=== PATIENT | male | born 1945 | race Caucasian/White ===

== ENCOUNTER → 2017-12-09 | Day surgery (SDC) | payer OTHER ==
[2017-12-06 14:56] VITALS: BMI 42.0
[~2017-12-09] VITALS: Ht 170.2 cm; Wt 122.7 kg
[~2017-12-09] MED LIST: ATV/1 PO; BUSP15TA70 PO; CARV25TA2 PO; CLB/200 PO; DICLOFEN GEL TOP; HYOS1TAB PO; LIDOCAINE HCL 2% 2 ML VIAL (20MG/ML) ONE; LOSA1TAB38 PO; MIDAZOLAM HCL 1 MG/ML 2ML VIAL ONE; PROPOFOL IV EMULSION 10 MG/ML 20 ML VIAL ONE; RANI150T85 PO; SIMV20TA2 PO
[2017-12-09 12:30] VITALS: Ht 170.2 cm; Wt 122.7 kg
--- NOTE | 2017-12-09 13:04 | Endo History and Physical ---
History & Physical Date of Service: Dec 09, 2017. Chief Complaint: HISTORY OF POLYPS Referring Physician: DR RODRIGUEZ History of Present Illness For colonoscopy Past Surgical History Hx Internal Defibrillator: No Hx Pacemaker: No Hx Abdominal Surgery: No Hx of Implantable Prosthesis: No Hx Post-Op Nausea and Vomiting: No Hx Cancer Surgery: No Hx Thoracic Surgery: No Hx Orthopedic: Yes (ORIF COLLARBONE AGE 15) Hx Urinary Tract Surgery: No Social History Smoking Status: Never Smoker Hx Substance Use: No Hx Alcohol Use: No Allergies Coded Allergies: No Known Allergies (Unverified , 12/09/17) Current Medications Reported Home Medications Medications Dose Route/Sig Max Daily Dose Days Date Category [Diclofen Gel] 1 Dose TOP PRN 12/06/17 Reported Levsin (Hyoscyamine Sulfate) 0.125 Mg Tab 0.125 Mg PO DAILY PRN 02/18/16 Reported Ativan (Lorazepam) 1 Mg Tab 1 Mg PO HS PRN 02/18/16 Reported Zantac (Ranitidine HCl) 150 Mg Tab 150 Mg PO HS 02/18/16 Reported CeleBREX (Celecoxib) 200 Mg Cap 200 Mg PO QAM 02/18/16 Reported Zocor (Simvastatin) 20 Mg Tab 20 Mg PO HS 02/18/16 Reported Buspar (Buspirone Hcl) 15 Mg Tab 5 Mg PO BID PRN 02/18/16 Reported Cozaar (Losartan Potassium) 100 Mg Tab 100 Mg PO QAM 02/18/16 Reported Coreg (Carvedilol) 25 Mg Tab 25 Mg PO BID 02/18/16 Reported Vital Signs Weight (Kilograms): 122.73 Height (Feet): 5 Height (Inches): 7 Date Time Temp Pulse Resp B/P (MAP) Pulse Ox O2 Delivery O2 Flow Rate FiO2 12/09/17 12:37 36.5 68 16 130/85 (100) 96 Room Air Physical Exam General Appearance: + obese Respiratory/Chest: Respiratory effort: no dyspnea Cardiovascular: Heart Auscultation: RRR Abdomen: Inspection & Palpation: soft Assessment and Plan Hx polyps for colonoscopy
--- NOTE | 2017-12-09 13:53 | Discharge Instructions ---
Endoscopy Patient Instructions Date / Procedure(s) Performed Dec 09, 2017. Colonoscopy Allergy Information Coded Allergies: No Known Allergies (Unverified , 12/09/17) Discharge Date / Findings Dec 09, 2017. Diverticulosis, hemorrhoids Medication Instructions Stopped Medication(s): CELEBREX Restart Stopped Medication(s): resume meds Reported Home Medications Medications Dose Route/Sig Max Daily Dose Days Date Category [Diclofen Gel] 1 Dose TOP PRN 12/06/17 Reported Levsin (Hyoscyamine Sulfate) 0.125 Mg Tab 0.125 Mg PO DAILY PRN 02/18/16 Reported Ativan (Lorazepam) 1 Mg Tab 1 Mg PO HS PRN 02/18/16 Reported Zantac (Ranitidine HCl) 150 Mg Tab 150 Mg PO HS 02/18/16 Reported CeleBREX (Celecoxib) 200 Mg Cap 200 Mg PO QAM 02/18/16 Reported Zocor (Simvastatin) 20 Mg Tab 20 Mg PO HS 02/18/16 Reported Buspar (Buspirone Hcl) 15 Mg Tab 5 Mg PO BID PRN 02/18/16 Reported Cozaar (Losartan Potassium) 100 Mg Tab 100 Mg PO QAM 02/18/16 Reported Coreg (Carvedilol) 25 Mg Tab 25 Mg PO BID 02/18/16 Reported Provider Instructions Activity Restrictions - No exercising or heavy lifting for 24 hours. - Do not drink alcohol the day of the procedure. - Do not drive a car or operate machinery until the day after the procedure. - Do not make any important decisions or sign important papers in 24 hours after the procedure. Following Day: - Return to full activity which may include returning to work/school. Diet Start your diet with liquids and light foods (jello, soup, juice, toast). Then eat your usual diet if not nauseated. Treatment For Common After Affects For mild abdominal pain, bloating, or excessive gas: - Rest - Eat lightly - Lie on right side Follow-Up Information Follow-up with DR RODRIGUEZ as scheduled Anesthesia Information What You Should Know You have had a procedure that required some medicine to reduce anxiety and discomfort. This treatment is called moderate sedation. After receiving the treatment, you may be sleepy, but you will be able to breathe on your own. The effects of the treatment may last for several hours. Follow these instructions along with Activity/Diet recommendations noted above: * Do NOT do anything where dizziness or clumsiness would be dangerous. * Rest quietly at home today, then you can be up and about tomorrow. * Have a responsible person stay with you the rest of today. * You may have had an I.V. today. If so, you may take the dressing off later today. Recommendations Call your doctor if: * Trouble breathing * Continuous vomiting for more than 24 hours * Temperature above 101 degrees * Severe abdominal pain or bloating * Pain not relieved by pain medicine ordered * There is increased drainage or redness from any incision * A large amount of rectal bleeding greater than 2-3 tablespoons. (If you had a polyp/s removed or have hemorrhoids, a small amount of blood - from the rectum is to be expected.) * You have any unanswered questions or concerns. IN THE EVENT OF A SERIOUS EMERGENCY, GO TO THE NEAREST EMERGENCY ROOM Your discharge instructions were prepared by provider Walt Flynn. Patient Instructions Signature Page Junior Culver Patient (or Guardian) Signature/Date: I have read and understand the instructions given to me by my caregivers. Caregiver/RN/Doctor Signature/Date: The above-named patient and/or guardian has received patient instructions on this date. + Original Patient Signature Page (only) stays with chart. Please make copy for patient.
--- NOTE | 2017-12-09 13:56 | GI REPORT ---
Patient Name: Junior Culver Procedure Date: 12/09/2017 1:26 PM Date of : 1945 Admit Type: Outpatient Age: 71 Gender: Male Attending MD: Walt Flynn MD Procedure: Colonoscopy Providers: Walt Flynn MD Referring MD: Eileen Aden Indications: Personal history of colonic polyps Medicines: Midazolam 2 mg IV, Propofol total dose 110 mg IV, Lidocaine 40 mg IV Complications: No immediate complications. Estimated Blood Loss: Estimated blood loss: none. Procedure: Pre-Anesthesia Assessment: - Prior to the procedure, a History and Physical was performed, and patient medications, allergies and sensitivities were reviewed. The patient's tolerance of previous anesthesia was reviewed. - The risks and benefits of the procedure and the sedation options and risks were discussed with the patient. All questions were answered and informed consent was obtained. After I obtained informed consent, the scope was passed under direct vision. Throughout the procedure, the patient's blood pressure, pulse, and oxygen saturations were monitored continuously. The scope was introduced through the anus and advanced to the cecum, identified by appendiceal orifice and ileocecal valve. The colonoscopy was performed without difficulty. The patient tolerated the procedure well. The quality of the bowel preparation was good. Findings: Multiple diverticula were found in the sigmoid colon. Non-bleeding internal hemorrhoids were found during endoscopy. The hemorrhoids were mild. Impression: - Diverticulosis in the sigmoid colon. - Non-bleeding internal hemorrhoids. - No specimens collected. Recommendation: - Discharge patient to home (ambulatory). - Continue present medications. - Repeat colonoscopy in 5 years for surveillance. - Return to primary care physician [facility]. Walt Flynn M.D. Walt Flynn MD 12/09/2017 1:55:48 PM This report has been signed electronically. Note Initiated On: 12/09/2017 1:26 PM Number of Addenda: 0 I attest to the content of the Intraoperative Record and orders documented therein, exceptions below {[id number]}
--- NOTE | 2017-12-09 14:21 | Anesthesiology Progress Note ---
Anesthesia Post Op Note Date & Time Dec 09, 2017 at 14:21 Vital Signs Pain Intensity: 0 Vital Signs Past 12 Hours Date Time Temp Pulse Resp B/P (MAP) Pulse Ox O2 Delivery O2 Flow Rate FiO2 12/09/17 14:11 67 16 133/70 (91) 96 Room Air 12/09/17 13:56 69 13 117/63 (81) 95 Room Air 12/09/17 12:37 36.5 68 16 130/85 (100) 96 Room Air Notes Mental Status: alert / awake / arousable, participated in evaluation Pt Amnestic to Procedure: Yes Nausea / Vomiting: adequately controlled Pain: adequately controlled Airway Patency, RR, SpO2: stable & adequate BP & HR: stable & adequate Hydration State: stable & adequate Anesthetic Complications: no major complications apparent
[2017-12-09 14:26] VITALS: BP 131/77; PULSE 64; O2SAT 96
== END | disposition home or self-care (01) ==
LOC: C.GI 12:17
PROVIDERS: ATTEND Internal Medicine Gastroenterology
DX: Z86.010 Personal history of colon polyps (principal); K57.30 Diverticulosis of large intestine without perforation or abscess without bleeding; K64.8 Other hemorrhoids; Z79.899 Other long term (current) drug therapy

== ENCOUNTER 2023-03-23 08:25 | Observation (INO) ==
--- NOTE | 2023-02-19 13:44 | PAT Medication Instructions ---
Medication Instructions Date of Service February 19, 2023 Home Medications Medication Instructions Recorded cyclobenzaprine 10 mg tablet 10 mg PO TID PRN muscle spasm #10 10/16/21 tabs carvedilol 25 mg tablet 25 mg PO BID simvastatin 10 mg tablet 10 mg PO HS terazosin 1 mg capsule 1 mg PO HS cyclobenzaprine 10 mg tablet 10 mg PO TID PRN apixaban 5 mg tablet (Eliquis) 5 mg PO BID empagliflozin 10 mg tablet (Jardiance) 10 mg PO QAM famotidine 40 mg tablet 40 mg PO HS losartan 100 mg tablet 100 mg PO HS dicyclomine 20 mg tablet 20 mg PO BID PRN psyllium husk 0.4 gram capsule 0.4 g PO DAILY PRN STOP 3 days before surgery empagliflozin 10 mg tablet (Jardiance) 10 mg PO QAM ASK your prescriber and surgeon apixaban 5 mg tablet (Eliquis) 5 mg PO BID DO NOT take the morning of surgery dicyclomine 20 mg tablet 20 mg PO BID PRN psyllium husk 0.4 gram capsule 0.4 g PO DAILY PRN Take morning of surgery With a small sip of water, OTHERWISE NOTHING TO EAT OR DRINK AFTER MIDNIGHT: carvedilol 25 mg tablet 25 mg PO BID cyclobenzaprine 10 mg tablet 10 mg PO TID PRN(if needed) Take evening before surgery carvedilol 25 mg tablet 25 mg PO BID simvastatin 10 mg tablet 10 mg PO HS terazosin 1 mg capsule 1 mg PO HS cyclobenzaprine 10 mg tablet 10 mg PO TID PRN(if needed) famotidine 40 mg tablet 40 mg PO HS losartan 100 mg tablet 100 mg PO HS dicyclomine 20 mg tablet 20 mg PO BID PRN(if needed) Other Notes If you have any questions please call us at [phone] or [phone] or [phone] or [phone]
--- NOTE | 2023-02-24 12:08 | Anesthesiology Consultation ---
Date of Service February 24, 2023 Assessment & Plan (1) Encounter for pre-operative examination: - will request most recent [facility] Cardiology office note, Val Allen. - check BSG am DOS. - awaiting labs completed at [facility] in [place] 02/23/23 including needed labs other than coags and type and screen per surgeon, patient and . They state will return for testing if needed once results are received and reviewed from [facility]. - Outpatient joint assessment: Patient is currently scheduled for inpatient pathway. If re-evaluated and patient/surgeon requests outpatient pathway, patient is not recommended candidate for outpatient joint program from anesthesia standpoint. Chart Review Chart Review: Pending: Refer to Additional Notes / Consult section and Patient seen in Pre Admission Testing Teaching & Discussion Pre-Anesthesia Teaching/Discussion Notes: Instructed NPO after midnight before surgery, except medications with 15 cc of water. Medication instructions provided according to the PAT guidelines. History Surgery Operation Date: 03/23/23 07:00 Proposed Procedures p Right Total Shoulder Arthroplasty Reverse - Aaron Lisandra Gutierrez MD Height/Weight Height: 5 ft 7 in Weight: 123.6 kg Allergies Allergy/AdvReac Type Severity Reaction Status Date / Time metformin AdvReac Intermediate CAUSED IBS Verified 02/12/23 12:18 Medications Home Medications Medication Instructions Recorded Confirmed Last Taken carvedilol 25 mg tablet 25 mg PO BID 11/30/18 02/12/23 01/28/23 05:00 simvastatin 10 mg tablet 10 mg PO 11/30/18 02/12/23 01/25/23 22:00 terazosin 1 mg capsule 1 mg PO 11/30/18 02/12/23 01/25/23 22:00 cyclobenzaprine 10 mg tablet 10 mg PO TID PRN muscle spasm #10 10/16/21 02/12/23 Unknown tabs apixaban 5 mg tablet (Eliquis) 5 mg PO BID 01/14/23 02/12/23 01/25/23 09:00 empagliflozin 10 mg tablet 10 mg PO QAM 01/14/23 02/12/23 01/25/23 09:00 (Jardiance) famotidine 40 mg tablet 40 mg PO HS 01/14/23 02/12/23 01/25/23 22:00 losartan 100 mg tablet 100 mg PO 01/14/23 02/12/23 01/25/23 22:00 dicyclomine 20 mg tablet 20 mg PO BID PRN ibs 01/20/23 02/12/23 Unknown psyllium husk 0.4 gram capsule 0.4 g PO DAILY PRN Constipation 01/20/23 02/12/23 Unknown Past Medical History Medical History (Updated 02/24/23 @ 12:16 by Jodi Perla PA-C) Atrial fibrillation on eliquis--follows P[facility] BPH (benign prostatic hyperplasia) GERD (gastroesophageal reflux disease) controlled, stable per pt Hyperlipidemia Hypertension controlled, stable per pt IBS (irritable bowel syndrome) Morbid obesity with BMI of 40.0-44.9, adult On anticoagulant therapy eliquis daily Prediabetes on jardiance Sleep apnea CPAP-compliant Patient denies h/o stroke, seizures, heart attack, heart failure, blood clots/DVTs or blood transfusions. Exercise / Class Metabolic Activity III < 4 Walking/Shop/Light housework (denies chest discomfort or shortness of breath with usual activities, lives in one floor home) Past Family History Family History Other Family history non-contributory No family history of adverse response to anesthesia Past Surgical History Surgical History History of bilateral cataract extraction History of colonoscopy History of surgery collar bone fx repair--hardware removed History of tooth extraction partial upper/lower dentures Status post cystoscopy with ureteral stent placement 01/28/23 @ [facility] Past Anesthesia History No Hx of Anesthesia Complications and No Family Hx of Anesthesia Complications History of PONV No Hx of PONV and Hx of Motion Sickness Social History Smoking Status: Former smoker Do You Dip or Chew Tobacco: No Smoking End Date: years ago Hx Alcohol Use: No Hx Substance Use: No substance use type: does not use Review of Systems Patient denies chest pain, shortness of breath, dyspnea on exertion, fever, chills, cough, wheezing, or palpitations. Physical Exam Vital Signs Vitals BP 132/82 P 73 TEMP 99.1 SP02 99.1% on RA RESP 18 Physical Patient resting comfortably in chair in no acute distress, alert and oriented, responding appropriately throughout visit Full cervical extension range of motion without pain TMD < 3 finger breadths Mallampati Score 3, small oral opening Dentition: partial upper and lower dentures, denies chipped or loose teeth, caps/crowns, implants or bridges Lungs: normal respiratory effort. Good air movement, clear throughout to auscultation, no adventitious breath sounds Cardiac: regular rate and rhythm, no murmurs noted Carotid arteries: negative bruit bilat Lab Results Anesthesia Preop Results Results Anesthesia Widget: WBC 10.67 K/ul (4.8-10.8) 01/15/23 Hgb 11.9 g/dl (14.0-18.0) L 01/15/23 Hct 36.6 % (42.0-52.0) L 01/15/23 Plt 183 K/uL (130-400) 01/15/23 Na 136 mmol/L (136-145) 01/15/23 K 3.8 mmol/L (3.5-5.1) 01/15/23 Cl 105 mmol/L (98-107) 01/15/23 CO2 23 mmol/L (21-32) 01/15/23 BUN 18 mg/dl (6-23) 01/15/23 Creat 1.04 mg/dl (0.6-1.4) 01/15/23 Glucose Level 135 mg/dl (70-99(Fasting)) H 01/15/23 POC Glucose 128 mg/dl (70-99) H 01/28/23 PT 11.7 Seconds (9.0-12.0) 02/24/23 PTT 30.9 Seconds (21.0-31.0) 02/24/23 INR 1.1 (0.9-1.1) 02/24/23 Urine Color Yellow 01/14/23 Urine Appearance Cloudy (Clear) A 01/14/23 Urine pH 5.0 (4.5-7.5) 01/14/23 Urine Specific [place] 1.023 (1.000-1.030) 01/14/23 Urine Protein Negative (Negative) 01/14/23 Urine Glucose (UA) 3+ (Negative) H 01/14/23 Urine Ketones 1+ (Negative) H 01/14/23 Urine Blood 3+ (Negative) H 01/14/23 Urine Nitrite Positive (Negative) A 01/14/23 Urine Bilirubin Negative (Negative) 01/14/23 Urine Urobilinogen Negative (Negative) 01/14/23 Urine Leukocyte Esterase 1+ (Negative) H 01/14/23 Urine WBC (Auto) >30 /hpf (0-5) H 01/14/23 Urine RBC (Auto) >30 /hpf (0-4) H 01/14/23 Urine Hyaline Casts (Auto) 1-5 /lpf (0-5) 01/14/23 Urine Epithelial Cells (Auto) 0-5 /lpf (0-5) 01/14/23 Urine Bacteria (Auto) 4+ (Negative) H 01/14/23 SARS-CoV-2, RNA, NAAT NEGATIVE (NEGATIVE) 01/14/23 Blood Type O Negative 02/24/23 Antibody Screen NEGATIVE 02/24/23 Testing Electrocardiogram Date: 01/14/23 NSR, rate 89 bpm Chest X-Ray Date: 01/25/23 No acute process
[~2023-03-23 08:25] MED LIST changes: +ACETAMINOPHEN 500 MG TAB PO SCH; -ATV/1 PO; +BUPIVACAINE 0.5 % 5 MG/1 ML PF 10ML VIAL ONE; -BUSP15TA70 PO; -CARV25TA2 PO; -CLB/200 PO; +CeleBREX 200 MG CAP PO SCH; +DEXAMETHASONE SOD INJ 4 MG/ML VIAL ONE; -DICLOFEN GEL TOP; -HYOS1TAB PO; -LIDOCAINE HCL 2% 2 ML VIAL (20MG/ML) ONE; -LOSA1TAB38 PO; +LR 15ML/HR IV SCH; +LR 60ML/HR IV SCH; +ONDANSETRON INJ 2 MG/ML 2 ML VIAL ONE; +PROPOFOL IV EMULSION 10 MG/ML 20 ML VIAL IV ONE; -PROPOFOL IV EMULSION 10 MG/ML 20 ML VIAL ONE; -RANI150T85 PO; +ROCURONIUM BROMIDE 10 MG/ML 5 ML VIAL IV ONE; +ROPIVACAINE 0.5% HCL/PF 150 MG, BUPIVACAINE 0.75% MPF 20 ML, EPINEPHrine 0.15 MG, Ketor... INFIL SCH; -SIMV20TA2 PO; +SUGAMMADEX SODIUM 200 MG/2 ML VIAL IV ONE; +Scopolamine 1 MG TDSY TD SCH; +TRANEXAMIC ACID 1,000 MG **IV Intra-op IV SCH; +TRANEXAMIC ACID 1,000 MG **IV Pre-op IV SCH; +fentaNYL citrate PF 100 MCG/2 ML VIAL ONE
[2023-03-23] MEDS ORDERED: BUPIVACAINE 0.5 % 5 MG/1 ML MPF 30ML VIAL ONE (09:45)
[2023-03-23] MEDS ORDERED: LIDOCAINE 1%/EPINEPHRINE 1:100,000 20 ML VIAL ONE (09:46)
--- NOTE | 2023-03-23 09:49 | History & Physical Bridge Note ---
Date of Service March 23, 2023 History & Physical Bridge Note I have examined the patient, reviewed the History & Physical and in the interval since the performance of the History & Physical I have noted the following changes of clinical significance: no changes noted
[2023-03-23] MEDS ORDERED: fentaNYL citrate PF 100 MCG/2 ML VIAL IV PRN (10:41)
[2023-03-23] MEDS ORDERED: ePHEDrine sulfate 50 MG/ML AMP IV PRN (10:41)
[2023-03-23] MEDS ORDERED: ONDANSETRON INJ 2 MG/ML 2 ML VIAL IV PRN ×2 (10:41→14:14)
[2023-03-23] MEDS ORDERED: ATROPINE SULFATE 0.1 MG/ML 10ML SYR IV PRN (10:41)
[2023-03-23] MEDS ORDERED: SUCCINYLCHOLINE CHLORIDE 20 MG/ML 10 ML VIAL IV ONE (11:31)
[2023-03-23] MEDS ORDERED: ROCURONIUM BROMIDE 10 MG/ML 5 ML VIAL IV ONE ×2 (11:31→13:20)
[2023-03-23] MEDS ORDERED: GLYCOPYRROLATE 0.2 MG/ML VIAL ONE (11:39)
[2023-03-23] MEDS ORDERED: SUGAMMADEX SODIUM 200 MG/2 ML VIAL IV ONE (13:12)
--- NOTE | 2023-03-23 13:55 | Post Operative Brief Note ---
Immediate Post Op Note v1 Date of Surgery March 23, 2023 Pre & Post Diagnosis Operation Date: 03/23/23 10:10 Pre-Op Diagnosis: Right shoulder Rotator cuff arthropathy Post-Op Diagnosis: Right shoulder Rotator cuff arthropathy I identified the patient and participated in the time-out.: Yes Procedure Operation Date: 03/23/23 10:10 Actual Procedures p Right Reverse Total Shoulder Arthroplasty(Right) - Aaron Gutierrez MD Surgeon Aaron Gutierrez MD Affiliate Marketing Specialist DAVID Isaacs PA-C (No fellow avail) Estimated Blood Loss 175 Findings Consistent with Post-Op Diagnosis Fluids 700 cc Specimens Right shoulder contents Anesthesia Type General Regional Complications none
--- NOTE | 2023-03-23 13:56 | Operative Report ---
Post Operative Report Pre & Post Diagnosis Operation Date: 03/23/23 10:10 Pre-Op Diagnosis: Right shoulder Rotator cuff arthropathy Post-Op Diagnosis: Right shoulder Rotator cuff arthropathy I identified the patient and participated in the time-out.: Yes Procedure Operation Date: 03/23/23 10:10 Actual Procedures p Right Reverse Total Shoulder Arthroplasty(Right) - Aaron Guiterrez MD Surgeon Aaron Gutierrez MD Supervisor [employer] DAVID Isaacs PA-C (No fellow avail) Estimated Blood Loss 175 Findings See Below Shoulder ROM Pre-op: FF 120 deg; Abd 140 deg; ER 5 deg; IR 50 deg Massive retracted rotator cuff with acetabulization of the humeral head. Humeral head was had loss of articular cartilage of humeral head. LHB was torn and no longer within the groove. Shoulder ROM Post-op: FF 150 deg; Abd 150 deg; ER 15 deg; IR 70 deg Fluids 700 cc Specimens Right shoulder contents Anesthesia Type General Regional Complications none Indications Patient is a 77-year-old male who developed right shoulder rotator cuff arthropathy with pain and decreased mobility. I recommended that she undergo a right shoulder Reverse TSA. The patient understands the risks of the operation including bleeding, infection, re-operation, damage to nerves and arteries, continued shoulder pain, shoulder stiffness, infection, and/or loosening of the components which may require additional surgery. The patient also understands the risks of heart attack, stroke, pulmonary embolus, and . The patient wished to proceed and the consent form was signed. Description of Procedure IMPLANTS: Arthrex 1) Humeral Stem 12 Univers Reverse Stem, with size 36 Right Offset Suture Cup at 135. 2) Humeral Liner 36, + 3 mm. 3) Glenoid Modular Baseplate 24 mm +4 Lateralized & Central Screw 10 x 25 mm. 4) Glenosphere 36/24 mm + 4 Lateralized. 5) Glenoid Locking screw 5.5 x 40 mm x 2. DAVID Isaacs PA-C is assisting with positioning, retracting, and closure due to fellow not available. PROCEDURE: The patient was taken to the Operating Room and placed in the beach-chair position after administration of an interscalene block and general anesthesia. 3 g of intravenous Ancef were administered. The right shoulder was then prepped and draped in the standard sterile fashion. Sequential compression devices were placed in the legs. The patient was identified and a multidisciplinary time-out identified the right shoulder as the correct shoulder and operative limb. First, the coracoid, acromion, clavicle, and planned deltopectoral incision were marked and then anesthetized with a 50:50 mixture of 1% lidocaine and 0.5% Marcaine with epinephrine. Sharp dissection was carried down to the deltopectoral interval. The cephalic vein was identified and protected laterally as was the deltoid. The deltopectoral interval was dissected to expose the clavipectoral fascia which was then incised. Blunt dissect was used to separate the deltoid from the humeral head as there was a massive rotator cuff tear. A self-retaining shoulder retractor was placed beneath the conjoined tendon and deltoid muscle, exposing the anterior capsule as the subscapularis tendon was torn. The superior 1cm of the Pec major was released. The biceps tendon was not identified in its groove and was torn, a small stump was located in the rotator interval. The remaining biceps tendon was unroofed and was split to the base of the coracoid and the biceps was released from the glenoid. Next, the humeral head was dislocated by adducting, extending, and externally rotation and the capsulotomy was carried down all the way around to the posterior aspect of the humeral head, taking care to stay on bone. Any humeral osteophytes anterior, inferiorly were removed with a rongeur to identify the medial calcar on the humeral neck. The humeral intramedullary entry point was entered posterior to the bicipital groove with a 2.4mm guide pin, followed by 6 mm drill, and then IM reamer. The resection guide was attached to the IM reamer and pinned to the humeral head with desired resection of 135. The IM reamer was removed and the humeral head was resected in the standard fashion. The resection protector was placed over the humeral surface. Our attention was drawn to the glenoid. The humerus was retracted and displaced posteriorly. The labrum was circumferentially removed as was the anterior capsule, which was carefully dissected free from the subscapularis tendon. The glenoid was exposed with 90 deg Lana/Derra retractor superiorly, Batman retractor anteriorly, and Mo retractor posteriorly. The glenoid was prepped with curettes to remove any remaining cartilage. Using the specific VIP patient specific glenoid aiming guide for a 24 mm baseplate was used to place the 2.8 mm guide wire. The glenoid surface was prepped for the baseplate with the glenoid reamers (peripheral and inferior offset). The modular central screw was prepped with cannulated 10 mm drill, then tapped to depth of 25 mm. The baseplate with central screw was screwed into place flush to the glenoid. The inferior screw hole was drilled first followed by the superior screw; locking screws were placed. The glenosphere was inserted onto the baseplate and locked into place in the standard fashion. The humerus was dislocated and humeral broaches 6 through 12 were sequentially placed in the humeral shaft until excellent fit. The A/P position of the broach was checked. The offset reamer guide was placed. The humeral cup reamer prepped the remainder of the humerus. The 12 stem was impacted into place with excellent purchase was achieved. The humeral trial liner 3 mm was placed. The shoulder was reduced with excellent fit and good stability of 1+ translation anteriorly and posteriorly. The shoulder ROM showed improved motion noted above. The definitive humeral liner was then placed. The ROM and stability was unchanged. The pulsatile lavage was used to copiously irrigate the wound throughout the case. The deltopectoral interval was re-approximated with #1-Vicryl, the subcutaneous tissue was closed with 3-0 Vircyl, and the skin was closed with ZipLine and Shield. The wounds were dressed with sterile gauze, and Tegaderm. The patient was then transferred to the PACU in stable condition after application of an abduction sling. POST-OP: The patient will be admitted for observation overnight. Patient will be seen by PT/OT prior to discharge. Pain medicine will be used as needed. The patient was placed in an abduction sling. I attest to the content of the Intraoperative Record and any orders documented therein. Any exceptions are noted below.
--- NOTE | 2023-03-23 14:13 | Operative Report ---
Post Operative Report Pre & Post Diagnosis Operation Date: 03/23/23 10:10 Pre-Op Diagnosis: Right shoulder rotator cuff arthropathy Post-Op Diagnosis: Right shoulder rotator cuff arthropathy I identified the patient and participated in the time-out.: Yes Procedure Operation Date: 03/23/23 10:10 Actual Procedures p Right Reverse Total Shoulder Arthroplasty(Right) - Aaron Gutierrez MD Surgeon Aaron Gutierrez MD Art History Instructor DAVID Isaacs PA-C (No fellow avail) Estimated Blood Loss 175 Findings Consistent with Post-Op Diagnosis Specimens Right shoulder bone and soft tissue Description of Procedure I was present during the entire case assisting with positioning, prepping, draping, wound retraction, wound closure, dressing and sling placement. No fellow present. Please see Dr. Gutierrez procedure note for specifics of the case. I attest to the content of the Intraoperative Record and any orders documented therein. Any exceptions are noted below.
[2023-03-23] MEDS ORDERED: PHARMACY GLYCEMIC MGMT CONSULT PRN (14:14)
[2023-03-23] MEDS ORDERED: diphenhydrAMINE 50 MG/ML VIAL IV PRN (14:14)
[2023-03-23] MEDS ORDERED: oxyCODONE HCL IR 5 MG TAB (IMMEDIATE RELEASE) PO PRN (14:14)
[2023-03-23] MEDS ORDERED: MAGNESIUM HYDROXIDE SUSP 30 ML UDC PO PRN (14:14)
[2023-03-23] MEDS ORDERED: METOCLOPRAMIDE HCL INJ 5 MG/ML 2 ML VIAL IV PRN (14:14)
[2023-03-23] MEDS ORDERED: TAMSULOSIN HCL 0.4 MG CAP PO PRN (14:14)
[2023-03-23] MEDS ORDERED: NALOXONE HCL 0.4 MG/1 ML VIAL/CARP IV PRN (14:14)
[2023-03-23] MEDS ORDERED: ALUMINUM/MAGNESIUM SUSP 30 ML UDC PO PRN (14:14)
[2023-03-23] MEDS ORDERED: HYDROmorphone INJ 0.5 MG/0.5 ML SYR IV PRN (14:14)
[2023-03-23] MEDS ORDERED: bisacodyL 10 MG SUPP PR PRN (14:14)
[2023-03-23] MEDS ORDERED: PSYLLIUM or GUAR GUM FIBER POWDER PACKET PO PRN (14:19)
[2023-03-23] MEDS ORDERED: CYCLOBENZAPRINE HCL 10 MG TAB PO PRN (14:19)
[2023-03-23] MEDS ORDERED: DICYCLOMINE HCL 20 MG TAB PO PRN (14:19)
--- NOTE | 2023-03-23 14:57 | Anesthesiology Progress Note ---
Date of Service March 23, 2023 Anesthesia Post Procedure Vital Signs Vital Signs: Temp Pulse Pulse Resp BP Pulse Ox O2 Del Method 03/23/23 14:45 80 18 143/85 H 95 Room Air 03/23/23 14:35 80 20 147/84 H 94 Room Air 03/23/23 14:25 83 20 146/82 H 94 Room Air 03/23/23 14:15 36.2 C L 83 20 109/74 96 Oxymask 03/23/23 09:02 36.6 C 72 18 157/90 H 98 Room Air O2 Flow Rate 03/23/23 14:45 03/23/23 14:35 03/23/23 14:25 03/23/23 14:15 4 03/23/23 09:02 Pain Intensity Right Shoulder: Pain Intensity: 5 Transfer of Care Handoff Completed per policy Notes Mental Status: alert / awake / arousable and participated in evaluation Patient Amnestic to Procedure: Yes Nausea / Vomiting: adequately controlled Pain: adequately controlled Airway Patency, RR, SpO2: stable & adequate BP & HR: stable & adequate Hydration State: stable & adequate Anesthetic Complications: no major complications apparent and Pt Satisfied with anesthetic care
--- NOTE | 2023-03-23 15:30 | XRay Report ---
XR shoulder RT min 2V routine CLINICAL HISTORY: Post shoulder surgery COMPARISON STUDY: Right shoulder 01/13/2022. FINDINGS: Status post reverse right total shoulder arthroplasty. The hardware appears intact. No frac ture or dislocation within the right shoulder. Moderate AC joint arthrosis again noted. IMPRESSION: Status post reverse right total shoulder arthroplasty. No evidence for hardware complica tion. ACT 112: Negative or not required by law. Electronically signed by: Abner Warner M.D. 03/23/2023 3:29 PM
--- NOTE | 2023-03-23 17:07 | Orthopedic Progress Note ---
Date of Service March 23, 2023 Assessment & Plan (1) Rotator cuff arthropathy of right shoulder: Plan: POD #0 s/p Reverse right TSA, doing as well as expected. Resume diet. No lifting more than coffee cup RUE. OOB to chair. Continue pain control. Check labs tomorrow. Abduction sling, neck strap can be release while sleeping and sitting. DVT prophylaxis: TEDs 3 weeks, foot pumps while in hospital, Resume Eliquis. PT/OT. Consider changing dressing to Silverlon before d/c. D/C planning. Present on Admission?: Yes Admission and Anticipated Discharge Date Admission Date: March 23, 2023 Physical Exam Physical Exam: RUE: 2+ radial pulse. Sensation to light touch intact distally, absent from neck to elbow. Motor: median, radial, Ulnar, AIN, PIN intact. Results & Data Vital Signs (Past 12 Hours) Vital Signs Temp Pulse Pulse Resp BP Pulse Ox O2 Del Method 03/23/23 16:43 36.6 C 86 17 103/65 95 Room Air 03/23/23 16:15 86 20 156/93 H 97 Nasal Cannula 03/23/23 16:00 81 16 151/94 H 97 Nasal Cannula 03/23/23 15:45 77 18 154/88 H 97 Nasal Cannula 03/23/23 15:30 79 16 128/88 94 Room Air 03/23/23 15:15 36.4 C L 79 16 133/81 94 Room Air 03/23/23 15:05 80 18 140/79 94 Room Air 03/23/23 14:55 79 16 137/78 95 Room Air 03/23/23 14:45 80 18 143/85 H 95 Room Air 03/23/23 14:35 80 20 147/84 H 94 Room Air 03/23/23 14:25 83 20 146/82 H 94 Room Air 03/23/23 14:15 36.2 C L 83 20 109/74 96 Oxymask 03/23/23 09:02 36.6 C 72 18 157/90 H 98 Room Air O2 Flow Rate 03/23/23 16:43 03/23/23 16:15 2 03/23/23 16:00 2 03/23/23 15:45 2 03/23/23 15:30 03/23/23 15:15 03/23/23 15:05 03/23/23 14:55 03/23/23 14:45 03/23/23 14:35 03/23/23 14:25 03/23/23 14:15 4 03/23/23 09:02 Diagnostic Findings Laboratory Results POC Glucose 118 mg/dl (70-99) H 03/23/23 09:00 Impressions Shoulder X-Ray 03/23/23 14:14 XR shoulder RT min 2V routine CLINICAL HISTORY: Post shoulder surgery COMPARISON STUDY: Right shoulder 01/13/2022. FINDINGS: Status post reverse right total shoulder arthroplasty. The hardware appears intact. No fracture or dislocation within the right shoulder. Moderate AC joint arthrosis again noted. IMPRESSION: Status post reverse right total shoulder arthroplasty. No evidence for hardware complication. ACT 112: Negative or not required by law. Electronically signed by: Abner Warner M.D. 03/23/2023 3:29 PM
[2023-03-23] MEDS: KETOROLAC TROMETHAMINE 15 MG/ML VIAL IV SCH ×2 (17:25→22:35)
[2023-03-23] MEDS: SODIUM CHLORIDE 0.9% 1,000 ML IV SCH (17:25)
[2023-03-23] MEDS: Scopolamine CHECK PATCH PLACEMENT SCH ×2 (17:25→23:05)
--- NOTE | 2023-03-23 17:29 | Hospitalist Consultation ---
Date of Consultation March 23, 2023 Assessment & Plan (1) Status post reverse arthroplasty of right shoulder: With Dr. Gutierrez on 03/23 Currently stable Patient declines CPAP while inpatient; reports he only uses it 3/7 days while at home Agree with a.m. CBC, BMP, creatinine, A1c; we will follow Perioperative antibiotics, pain control, DVT PPx, and IV fluids per the primary team (2) Atrial fibrillation: Rate controlled Agree with restarting Eliquis tomorrow morning on 03/24; will defer to primary team Continue carvedilol (3) Prediabetes: Continue to hold Jardiance while inpatient T2DM diet Check glucose with a.m. labs AM A1c Pharmacy consulted for glycemic control (4) GERD (gastroesophageal reflux disease): Continue famotidine (5) BPH (benign prostatic hyperplasia): Continues terazosin (6) Hyperlipidemia: Continue simvastatin (7) Hypertension: Continue carvedilol, restart losartan POD#1 Plan Agree with medical decision-making: MedSurZe[employer] Full code AHA, T2DM diet VTE PPx: SCDs, teds Thank you for allowing us to participate in the care of this patient, please reach out with any questions or concerns Supervising Physician Co-Signing Physician Notes I personally saw and examined the patient. I independently reviewed the labs, problem list, medication list, past medical history and family history. I verified all antony points and agree with Abner Temple PA-C with the following exceptions and/or additions: 77 year old male POD#0 right reverse total shoulder arthroplasty. EBL 175ml. Complications - none. Reports not yet urinated since operation. Usually has urinary frequency and BPH treated with terazosin. Also notes 5 minutes of epigastric pain. No history of GI bleed or ulcer. Currently on Celebrex and Toradol. O/E A&Ox3, HS RRR, no murmurs, Chest CTAB, Abdo SNT A/P Right reverse total shoulder arthroplasty - VTE/Pain/Bowel management per primary orthopedic team Gastritis - reports epigastric pain lasting 5 mins after his evening pills. No heartburn or history og GI bleed/ulcer. Orthopedics have both Celebrex and Toradol ordered. Pt on famotidine HS usually. Will add one dose of pantoprazole 40mg IV now and reassess tomorrow. May need to stop Toradol if any further epigastric pain. HTN - hold losartan until POD#1, continue carvedilol BPH - continue terazosin, monitor for urinary retention Paroxysmal atrial fibrillation - currently appears RRR. Anticoagulation to restart when ok from orthopedics perspective. History of Present Illness Reason for Consultation: Medical management Requesting Physician: Aaron Gutierrez MD Attending Physician: Aaron Gutierrez MD History of Present Illness Junior is a 77-year-old male with PMH of GERD, rotator cuff arthropathy of the right shoulder, atrial fibrillation, HLD, BPH, and HTN. He presented for a right reverse total shoulder arthroplasty with Dr. Aaron Gutierrez at 1010 on 03/23/2023. Per operative note, EBL was 175cc, general regional anesthesia was used, and there were no intraoperative complications. Per review of patient's vitals, patient has been mildly hypotensive postop; vitals otherwise stable. Patient reports she took carvedilol this morning, no other medications. He has not taken Eliquis or Jardiance since Monday 03/19 Patient has no R shoulder pain at time of consult (1800 on 03/23). He rates his right shoulder pain 9/10 at its worst (without pain medication). Patient reports he has been eating broth okay since being up. However, he notes that he has not urinated postop. Patient reports that he uses a CPAP 3/7 nights; he declines it while inpatient. ROS: Patient endorses sort throat, mild SOB, nausea. Patient denies fever, chills, sweating, MACHUCA, dizziness, lightheadedness, CP, abdominal pain, vomiting, saddle anesthesia, or numbness/tingling/pain/swelling in the legs. Allergies Allergy/AdvReac Type Severity Reaction Status Date / Time metformin AdvReac Intermediate CAUSED IBS Verified 03/23/23 09:10 Home Medications Medication Instructions Recorded Confirmed Type carvedilol 25 mg tablet 25 mg PO BID 11/30/18 03/23/23 History simvastatin 10 mg tablet 10 mg PO HS 11/30/18 03/23/23 History terazosin 1 mg capsule 1 mg PO HS 11/30/18 03/23/23 History cyclobenzaprine 10 mg tablet 10 mg PO TID PRN muscle spasm #10 10/16/21 03/23/23 Rx tabs apixaban 5 mg tablet (Eliquis) 5 mg PO BID 01/14/23 03/23/23 History empagliflozin 10 mg tablet 10 mg PO QAM 01/14/23 03/23/23 History (Jardiance) famotidine 40 mg tablet (Pepcid) 40 mg PO HS 01/14/23 03/23/23 History losartan 100 mg tablet 100 mg PO HS 01/14/23 03/23/23 History dicyclomine 20 mg tablet 20 mg PO BID PRN ibs 01/20/23 03/23/23 History psyllium husk 0.4 gram capsule 0.4 g PO DAILY PRN Constipation 01/20/23 03/23/23 History oxycodone 5 mg tablet 5 - 10 mg (1 - 2 x 5 mg) PO Q4H 03/24/23 Rx PRN pain #18 tabs Patient History Medical History (Updated 03/24/23 @ 10:02 by Ariadna Diggs PA-C) Rotator cuff arthropathy of right shoulder Morbid obesity with BMI of 40.0-44.9, adult On anticoagulant therapy eliquis daily IBS (irritable bowel syndrome) Sleep apnea CPAP-compliant BPH (benign prostatic hyperplasia) Hyperlipidemia GERD (gastroesophageal reflux disease) controlled, stable per pt Prediabetes on jardiance Atrial fibrillation on eliquis--follows PSH Hypertension controlled, stable per pt Surgical History (Updated 03/23/23 @ 17:28 by Abner Temple PA-C) History of surgery collar bone fx repair--hardware removed Status post cystoscopy with ureteral stent placement 01/28/23 @ [facility] History of tooth extraction partial upper/lower dentures History of bilateral cataract extraction History of colonoscopy Family History Other Family history non-contributory No family history of adverse response to anesthesia Social History Smoking Status: Former smoker Smoking End Date: years ago; Second Hand Exposure: No; Do You Dip or Chew Tobacco: No; Tobacco Cessation Education Requested by Patient: No Hx Alcohol Use: No Hx Substance Use: No Preferred Language: Armenian Communication Ability: Effective Plating Inspector Required: No Beliefs That Will Affect Care: None Current Living Situation: Spouse Feels Safe at Home: Yes Safety Concerns: Feels Safe At This Time Assistive Devices: CPAP, Denture - Upper, Denture - Lower, Glasses and Hearing Aid - Bilateral Review of Systems Review of Systems: See HPI above Physical Exam Physical Exam: General: no acute distress; non-toxic appearing; well-nourished; cooperative; 94% SPO2 on room air HEENT: normocephalic, atraumatic; no scleral icterus; PERRLA w/ EOMs intact; moist mucus membrane; vision and hearing grossly intact Neck: supple; no JVD; no lymphadenopathy; trachea midline Skin: warm, dry without signs of tenting; no cyanosis; no rashes, bruising, lesions, or erythema noted CV: chest wall NTP; RRR; S1/S2 normal; no murmurs/rubs/gallops; pulses intact and symmetric at radial, DP, and PT Lungs: no acute respiratory distress; symmetrical chest wall expansion; clear breath sounds across all lung norman w/o adventitious sounds; no wheezing ABD: Soft, NTP; BS present; no rebound/guarding; no ascites; no distention; negative CVA tenderness RUE: Sensation intact in the right fingers; +5/5 R fagot maker strength; patient demonstrates ability to wiggle fingers, bend right wrist, and bend right elbow; surgical site dressing borders without signs of drainage, infection, swelling, or erythema MSK: no tics or fasciculations; no edema noted in the LEs b/l (SCDs, teds); patient demonstrates ability to wiggle toes Neuro: A&Ox3; normal mood and affect; fluent speech; no focal deficits; sensation grossly intact in the UEs/LEs b/l Results & Data Results & Data Vital Signs (Past 12 Hours) Vital Signs Temp Pulse Pulse Resp BP Pulse Ox O2 Del Method 03/23/23 16:43 36.6 C 86 17 103/65 95 Room Air 03/23/23 16:15 86 20 156/93 H 97 Nasal Cannula 03/23/23 16:00 81 16 151/94 H 97 Nasal Cannula 03/23/23 15:45 77 18 154/88 H 97 Nasal Cannula 03/23/23 15:30 79 16 128/88 94 Room Air 03/23/23 15:15 36.4 C L 79 16 133/81 94 Room Air 03/23/23 15:05 80 18 140/79 94 Room Air 03/23/23 14:55 79 16 137/78 95 Room Air 03/23/23 14:45 80 18 143/85 H 95 Room Air 03/23/23 14:35 80 20 147/84 H 94 Room Air 03/23/23 14:25 83 20 146/82 H 94 Room Air 03/23/23 14:15 36.2 C L 83 20 109/74 96 Oxymask 03/23/23 09:02 36.6 C 72 18 157/90 H 98 Room Air O2 Flow Rate 03/23/23 16:43 03/23/23 16:15 2 03/23/23 16:00 2 03/23/23 15:45 2 03/23/23 15:30 03/23/23 15:15 03/23/23 15:05 03/23/23 14:55 03/23/23 14:45 03/23/23 14:35 03/23/23 14:25 03/23/23 14:15 4 03/23/23 09:02 Laboratory Results Abnormal lab results 03/23/23 Range/Units 09:00 POC Glucose 118 H (70-99) mg/dl Diagnostic Findings Shoulder X-Ray 03/23/23 14:14 XR shoulder RT min 2V routine CLINICAL HISTORY: Post shoulder surgery COMPARISON STUDY: Right shoulder 01/13/2022. FINDINGS: Status post reverse right total shoulder arthroplasty. The hardware appears intact. No fracture or dislocation within the right shoulder. Moderate AC joint arthrosis again noted. IMPRESSION: Status post reverse right total shoulder arthroplasty. No evidence for hardware complication. ACT 112: Negative or not required by law. Electronically signed by: Abner Warner M.D. 03/23/2023 3:29 PM PG Care Time/CCT Total # of Minutes Spent Total Time Spent with Patient: Total time spent is greater than 50% in coordination of care (as documented) at patient's floor/unit and/or counseling patient: Coding [place] [address] IN/OBS CONSULT LVL 4,60M Patient Type Established Medical Decision Making Low Complexity Diagnoses Status post reverse arthroplasty of right shoulder Z96.611 Atrial fibrillation I48.91 Prediabetes R73.03 GERD (gastroesophageal reflux disease) K21.9 BPH (benign prostatic hyperplasia) N40.0 Hyperlipidemia E78.5 Hypertension I10
[2023-03-23] MEDS: INSULIN ASPART PER UNIT CHARGE SC SCH ×2 (17:34→21:00)
[2023-03-23] MEDS: ASCORBIC ACID 500 MG TAB PO SCH (17:47)
[2023-03-23] MEDS: FERROUS GLUCONATE 324 MG TAB PO SCH (17:47)
[2023-03-23] MEDS: ceFAZolin 2000MG 2,000 MG/15 ML SYR IV SCH (17:59)
[2023-03-23] MEDS ORDERED: TRANEXAMIC ACID / 0.7% NACL 1,000 MG/100 ML BAG IV SCH (20:15)
[2023-03-23] MEDS: DOCUSATE SODIUM 100 MG CAP PO SCH (20:25)
[2023-03-23] MEDS: carvediloL 25 MG TAB PO SCH (20:25)
[2023-03-23] MEDS: CeleBREX 200 MG CAP PO SCH (20:27)
[2023-03-23] MEDS ORDERED: FAMOTIDINE 40 MG TABLET PO SCH (21:00)
[2023-03-23] MEDS ORDERED: SENNA 8.6 MG TAB PO SCH (21:00)
[2023-03-23] MEDS ORDERED: TERAZOSIN HCL 1 MG CAP PO SCH (21:00)
[2023-03-23] MEDS ORDERED: LOSARTAN POTASSIUM 50 MG TAB PO SCH (21:00)
[2023-03-23] MEDS ORDERED: SIMVASTATIN 10 MG TAB PO SCH (21:00)
[2023-03-23] MEDS: ACETAMINOPHEN 500 MG TAB PO SCH (22:35)
[2023-03-23] MEDS ORDERED: PANTOprazole 40 MG in SYRINGE 0 ML IV ONE (23:51)
[2023-03-24] MEDS: SODIUM CHLORIDE 0.9% 1,000 ML IV SCH (01:53)
[2023-03-24] MEDS: ceFAZolin 2000MG 2,000 MG/15 ML SYR IV SCH (01:53)
[2023-03-24] MEDS: ACETAMINOPHEN 500 MG TAB PO SCH ×2 (05:12→14:03)
[2023-03-24] MEDS: KETOROLAC TROMETHAMINE 15 MG/ML VIAL IV SCH ×2 (05:12→11:36)
[2023-03-24 06:49] LABS: Basophils # (auto) 0.02 K/uL (0.00-0.20); Basophils % (auto) 0.2 %; Hematocrit (blood only) 37.4 % (42.0-52.0); Hemoglobin 11.8 g/dl (14.0-18.0); Immature Granulocytes # (auto) 0.07 K/uL (0.01-0.20); Immature Granulocytes % (auto) 0.6 %; Lymphocytes # (auto) 1.01 K/uL (1.20-3.40); Lymphocytes % (auto) 9.4 %; Mean Corpuscular Hemoglobin 28.4 pg (25.0-34.0); Mean Corpuscular Hgb Conc 31.6 g/dL (32.0-36.0); Mean Corpuscular Volume 90.1 fL (80.0-100.0); Mean Platelet Volume 9.5 fL (9.4-12.4); Monocytes # (auto) 1.47 K/uL (0.11-0.59); Monocytes % (auto) 13.6 %; Neutrophils # (auto) 8.23 K/uL (1.40-6.50); Neutrophils % (auto) 76.2 %; Platelet Count 195 K/uL (130-400); RDW Coefficient of Variation 15.5 % (11.5-14.5); RDW Standard Deviation 51.5 fL (36.4-46.3); Red Blood Count 4.15 M/uL (4.70-6.10)
[2023-03-24 07:14] LABS: Estimated Average Glucose 120 mg/dl; Hemoglobin A1C 5.8 % (4.5-5.6)
[2023-03-24 07:16] LABS: BUN Creatinine Ratio 22.4 (10-20); Calcium 8.3 mg/dl (8.6-10.3); Creatinine Clr Calc Pharmacy 93.2 ml/min; Est GFR (African American) 98.1 ml/min; Est GFR (Non-African American) 84.6 ml/min; Potassium 3.9 mmol/L (3.5-5.1)
[2023-03-24] MEDS: ASCORBIC ACID 500 MG TAB PO SCH ×2 (08:10→17:07)
[2023-03-24] MEDS: CeleBREX 200 MG CAP PO SCH (08:10)
[2023-03-24] MEDS: FERROUS GLUCONATE 324 MG TAB PO SCH ×2 (08:12→17:07)
[2023-03-24] MEDS: carvediloL 25 MG TAB PO SCH (08:12)
[2023-03-24] MEDS: Scopolamine CHECK PATCH PLACEMENT SCH ×2 (08:13→17:04)
[2023-03-24] MEDS: DOCUSATE SODIUM 100 MG CAP PO SCH (08:14)
[2023-03-24] MEDS: INSULIN ASPART PER UNIT CHARGE SC SCH ×4 (08:18→17:14)
[2023-03-24] MEDS ORDERED: EMPAGLIFLOZIN 10 MG TAB PO SCH (09:00)
[2023-03-24] MEDS ORDERED: APIXABAN 5 MG TABLET PO SCH (09:00)
[2023-03-24] MEDS ORDERED: MULTIVITAMIN TAB PO SCH (09:00)
--- NOTE | 2023-03-24 10:02 | Orthopedic Progress Note ---
Date of Service March 24, 2023 Assessment & Plan (1) Orthopnea: Plan: New onset - since post op Hospitalist notified Will order Chest x-ray to evaluated for fluid accumulation vs. hemiparesis of diaphragm due to nerve block right shoulder. Also with history of A-fib and pre op holding of Eliquis could potentially be PE. Will defer to medicine on further necessary workup. Eliquis resumed this morning. Will re-eval this afternoon. continue activities as tolerated Oxygen via nasal cannula PRN. (2) Status post reverse arthroplasty of right shoulder: Plan: POD #1 s/p Reverse right TSA, doing as well as expected. Resume diet. No lifting more than coffee cup RUE. OOB to chair. Continue pain control. Ice to shoulder as needed for pain/swelling. Abduction sling, neck strap can be release while sleeping and sitting. DVT prophylaxis: TEDs 3 weeks, foot pumps while in hospital, Resume Eliquis - restarted this morning. PT/OT. Dressing changed to Silverlon dressing today. Plan on discharging to home once medically stable due to new onset orthopnea. Findings discussed with Dr. Gutierrez Will re-evaluate in the afternoon to see about possible discharge today due to orthopnea. May need to stay until tomorrow. Admission and Anticipated Discharge Date Admission Date: March 23, 2023 Supervising Physician Co-Signing Physician Notes I, Dr. Gutierrez, saw and examined the patient and discussed the management with my PA. I reviewed my PAs note and agree with the documented findings and the plan of care I developed. Subjective Patient doing well, no complaints of pain in right shoulder. "block is still working" Had tolerated regular diet without post op nausea or vomiting - although "doesn't have much of an appetite" Has noticed some blood on dressing of right shoulder Has been out of bed ambulating in room. States that with activity and especially when lying down he feels "like he can't catch his breath". History of A-fib, eliquis resumed this morning. Denies chest pain. Denies lightheadedness or dizziness. Improved with oxygen. Nursing states that SAT's have not dropped below 94. Last night had issues with urinary retention requiring straight catheterization, but improved and urinating normally today. Has not had BM. Review of Systems Review of Systems: as per HPI Physical Exam Respiratory: normal respiratory effort, lungs clear to auscultation no respiratory distress, no retractions and does not use accessory muscles Musculoskeletal: Mild bloody drainage on distal aspect of dressings. Able to flex and extend fingers, cross fingers and flex, extend and abduct right thumb. Full wrist extension and flexion, strength 4+/5 with wrist extension. Unable to move elbow or pronate or supinate. Has normal sensation throughout right arm, but unable to move shoulder due to nerve block. Dressings removed, incision clean and intact. Mild bloody drainage at distal aspect of incision cleansed with sterile saline wipe. No active drainage. Silverlon dressing applied to incision. No distal edema right hand. Results & Data Vital Signs (Past 12 Hours) Vital Signs Temp Pulse Resp BP Pulse Ox O2 Del Method O2 Flow Rate 03/24/23 09:48 36.4 C L 75 17 147/78 H 95 Room Air 03/24/23 08:09 76 17 155/78 H 95 Room Air 03/24/23 07:25 Room Air 03/24/23 07:20 36.6 C 81 16 157/81 H 96 Nasal Cannula 2 03/24/23 05:47 90 22 159/81 H 97 Nasal Cannula 2 03/24/23 03:02 37.1 C 89 18 180/83 H 96 Nasal Cannula 2.0 03/23/23 22:57 36.7 C 93 H 18 161/90 H 94 Room Air Laboratory Results 03/24/23 03/24/23 03/23/23 Range/Units 07:50 06:32 21:08 WBC 10.80 (4.8-10.8) K/ul RBC 4.15 L (4.70-6.10) M/uL Hgb 11.8 L (14.0-18.0) g/dl Hct 37.4 L (42.0-52.0) % MCV 90.1 (80.0-100.0) fL MCH 28.4 (25.0-34.0) pg MCHC 31.6 L (32.0-36.0) g/dL RDW Std Deviation 51.5 H (36.4-46.3) fL RDW Coeff of Kwabena 15.5 H (11.5-14.5) % Plt Count 195 (130-400) K/uL MPV 9.5 (9.4-12.4) fL Immature Gran % (Auto) 0.6 % Neut % (Auto) 76.2 % Lymph % (Auto) 9.4 % Ralls % (Auto) 13.6 % Eos % (Auto) 0.0 % Baso % (Auto) 0.2 % Neut # (Auto) 8.23 H (1.40-6.50) K/uL Lymph # (Auto) 1.01 L (1.20-3.40) K/uL Ralls # (Auto) 1.47 H (0.11-0.59) K/uL Eos # (Auto) 0.00 (0.00-0.50) K/uL Baso # (Auto) 0.02 (0.00-0.20) K/uL Immature Gran # (Auto) 0.07 (0.01-0.20) K/uL Sodium 139 (136-145) mmol/L Potassium 3.9 (3.5-5.1) mmol/L Chloride 110 H (98-107) mmol/L Carbon Dioxide 23 (21-32) mmol/L Anion Gap 6 (3-11) BUN 19 (6-23) mg/dl Creatinine 0.85 (0.6-1.4) mg/dl Est Cr Clr Drug Dosing 93.2 ml/min Est GFR ( Amer) 98.1 ml/min Est GFR (Non-Af Amer) 84.6 ml/min BUN/Creatinine Ratio 22.4 H (10-20) Glucose 145 H (70-99(Fasting)) mg/dl POC Glucose 147 H 164 H (70-99) mg/dl Estimat Average Glucose 120 mg/dl Hemoglobin A1c 5.8 H (4.5-5.6) % Calcium 8.3 L (8.6-10.3) mg/dl Diagnostic Findings XR shoulder RT min 2V routine CLINICAL HISTORY: Post shoulder surgery COMPARISON STUDY: Right shoulder 01/13/2022. FINDINGS: Status post reverse right total shoulder arthroplasty. The hardware appears intact. No fracture or dislocation within the right shoulder. Moderate AC joint arthrosis again noted. IMPRESSION: Status post reverse right total shoulder arthroplasty. No evidence for hardware complication.
--- NOTE | 2023-03-24 10:58 | XRay Report ---
XR chest 1V portable CLINICAL HISTORY: shortness of breath post op TECHNIQUE: Single frontal radiograph of the chest was obtained. Comparison: Comparison is made to chest radiograph 01/25/2023 FINDINGS: Right shoulder reverse arthroplasty is seen. The cardiomediastinal silhouette is normal. There is irina vation of the right hemidiaphragm. No evidence of pleural effusion or pneumothorax. IMPRESSION: No acute chest disease. ACT 112: Negative or not required by law. Electronically signed by: Mu Santana M.D. 03/24/2023 10:57 AM
--- NOTE | 2023-03-24 11:41 | XRay Report ---
XR chest 2V PA/lateral HISTORY: Shortness of breath. COMPARISON: Chest 03/24/2023. FINDINGS: A right shoulder prosthesis is partially visualized. No pneumothorax. There are low lung vo lumes with mild elevation of the right hemidiaphragm. This remains unchanged. The heart remains enlar ged. There is mild central pulmonary vascular congestion without overt edema. Right basilar linear de nsities favor subsegmental atelectasis. IMPRESSION: 1. Cardiomegaly and mild pulmonary vascular congestion. This has slightly progressed. 2. Elevated right hemidiaphragm and right basilar linear densities again noted. This favors atelectas is. ACT 112: Negative or not required by law. Electronically signed by: Abner Warner M.D. 03/24/2023 11:40 AM
--- NOTE | 2023-03-24 12:53 | Hospitalist Consultation ---
Date of Consultation March 24, 2023 Assessment & Plan (1) Orthopnea: -singular episode 03/24 am, requiring 2L of O2 for brief time - EKG: NSR by my interpretation - CXR: with right hemidiaphragm, mild atelectasis. Consistent with recent surgery and regional nerve block - Pulmonary toilet - IS, flutter valve -Does not appear clinically fluid overloaded at this time to need Lasix (2) Status post reverse arthroplasty of right shoulder: With Dr. Gutierrez on 03/23 -Hgb: 11.8 - Preop antibiotics, pain control, DVT PPx, and IV fluids per the primary team (3) Atrial fibrillation: Rate controlled Reasonable to restart Eliquis; will defer to primary team Continue carvedilol (4) Prediabetes: Continue to hold Jardiance while inpatient -hgbA1c: 5.8 T2DM diet Pharmacy consulted for glycemic control (5) Hematuria: - single episode 03/23 after straight cath - no further episodes, voiding without issue - would be reasonable to restart Eliquis (6) GERD (gastroesophageal reflux disease): Continue famotidine (7) BPH (benign prostatic hyperplasia): Continues terazosin (8) Hyperlipidemia: Continue simvastatin (9) Hypertension: Continue carvedilol, restart losartan (10) Obstructive sleep apnea: Patient declines CPAP while inpatient; reports he only uses it 3/7 days while at home Plan Discussed case with pulmonolgy, Dr. Matthew, and Orthopedics PA [place]. Dispo: Will continue to monitor pulmonary status, possible discharge later today. History of Present Illness Attending Physician: Aaron Gutierrez MD History of Present Illness 1110 -patient seen resting in the chair on room air. Was notified by RN that patient had shortness of breath earlier in the morning. He reports that after working with physical therapy and walking in the halls and then moving around in his room, when he laid down flat he began to feel short of breath. The nurse put 2 L of oxygen on him. He does wear a CPAP at home occasionally, but does not normally feel short of breath when lying down. Has noticed some SOB with activity around the house. Did not have any chest pain during that event. Yesterday had report of hematuria, Eliquis was held. States this happened after he had to be straight cath. He has been urinating without issue since, as long as he gets up to go to the bathroom and does not use the bedside urinal. Has not noticed any further blood in his urine. Had episode of gastritis yesterday. States this happened when he took a bunch of pills on an empty stomach, including a stool softener. Reports he has IBS at baseline. No GI upset today. Reports improving appetite, no nausea or vomiting. Allergies Allergy/AdvReac Type Severity Reaction Status Date / Time metformin AdvReac Intermediate CAUSED IBS Verified 03/23/23 09:10 Home Medications Medication Instructions Recorded Confirmed Type carvedilol 25 mg tablet 25 mg PO BID 11/30/18 03/23/23 History simvastatin 10 mg tablet 10 mg PO HS 11/30/18 03/23/23 History terazosin 1 mg capsule 1 mg PO HS 11/30/18 03/23/23 History cyclobenzaprine 10 mg tablet 10 mg PO TID PRN muscle spasm #10 10/16/21 03/23/23 Rx tabs apixaban 5 mg tablet (Eliquis) 5 mg PO BID 01/14/23 03/23/23 History empagliflozin 10 mg tablet 10 mg PO QAM 01/14/23 03/23/23 History (Jardiance) famotidine 40 mg tablet (Pepcid) 40 mg PO HS 01/14/23 03/23/23 History losartan 100 mg tablet 100 mg PO HS 01/14/23 03/23/23 History dicyclomine 20 mg tablet 20 mg PO BID PRN ibs 01/20/23 03/23/23 History psyllium husk 0.4 gram capsule 0.4 g PO DAILY PRN Constipation 01/20/23 03/23/23 History oxycodone 5 mg tablet 5 - 10 mg (1 - 2 x 5 mg) PO Q4H 03/24/23 Rx PRN pain #18 tabs Patient History Medical History (Updated 03/24/23 @ 13:21 by Cherelle Reyna PA-C) Rotator cuff arthropathy of right shoulder Morbid obesity with BMI of 40.0-44.9, adult On anticoagulant therapy eliquis daily IBS (irritable bowel syndrome) Sleep apnea CPAP-compliant BPH (benign prostatic hyperplasia) Hyperlipidemia GERD (gastroesophageal reflux disease) controlled, stable per pt Prediabetes on jardiance Atrial fibrillation on eliquis--follows PSH Hypertension controlled, stable per pt Surgical History (Updated 03/23/23 @ 17:28 by Abner Temple PA-C) History of surgery collar bone fx repair--hardware removed Status post cystoscopy with ureteral stent placement 01/28/23 @ [facility] History of tooth extraction partial upper/lower dentures History of bilateral cataract extraction History of colonoscopy Family History Other Family history non-contributory No family history of adverse response to anesthesia Social History Smoking Status: Former smoker Smoking End Date: years ago; Second Hand Exposure: No; Do You Dip or Chew Tobacco: No; Tobacco Cessation Education Requested by Patient: No Hx Alcohol Use: No Hx Substance Use: No Preferred Language: Iraqi Communication Ability: Effective Adult Education Professional Required: No Beliefs That Will Affect Care: None Current Living Situation: Spouse Feels Safe at Home: Yes Safety Concerns: Feels Safe At This Time Assistive Devices: None Review of Systems Review of Systems: All systems reviewed & are unremarkable except as noted in Subjective Physical Exam Physical Exam: General: WN/WD, NAD, VS as above Resp: normal respiratory effort, slighly diminished sounds R lower consistent with hemidiaphragm CV: RRR, no murmur, no edema Abd: normal bowel sounds, non tender, no hepatosplenomegaly Extremities: Brace on R shoulder, no LE edema Neuro: A&O x3, Results & Data Results & Data Vital Signs (Past 12 Hours) Vital Signs Temp Pulse Resp BP Pulse Ox O2 Del Method O2 Flow Rate 03/24/23 09:48 36.4 C L 75 17 147/78 H 95 Room Air 03/24/23 08:09 76 17 155/78 H 95 Room Air 03/24/23 07:25 Room Air 03/24/23 07:20 36.6 C 81 16 157/81 H 96 Nasal Cannula 2 03/24/23 05:47 90 22 159/81 H 97 Nasal Cannula 2 03/24/23 03:02 37.1 C 89 18 180/83 H 96 Nasal Cannula 2.0 Laboratory Results Laboratory Results - last 24 hr 03/23/23 03/24/23 03/24/23 21:08 06:32 07:50 WBC 10.80 RBC 4.15 L Hgb 11.8 L Hct 37.4 L MCV 90.1 MCH 28.4 MCHC 31.6 L RDW Std Deviation 51.5 H RDW Coeff of Kwabena 15.5 H Plt Count 195 MPV 9.5 Immature Gran % (Auto) 0.6 Neut % (Auto) 76.2 Lymph % (Auto) 9.4 Hyde % (Auto) 13.6 Eos % (Auto) 0.0 Baso % (Auto) 0.2 Neut # (Auto) 8.23 H Lymph # (Auto) 1.01 L Hyde # (Auto) 1.47 H Eos # (Auto) 0.00 Baso # (Auto) 0.02 Immature Gran # (Auto) 0.07 Sodium 139 Potassium 3.9 Chloride 110 H Carbon Dioxide 23 Anion Gap 6 BUN 19 Creatinine 0.85 Est Cr Clr Drug Dosing 93.2 Est GFR ( Amer) 98.1 Est GFR (Non-Af Amer) 84.6 BUN/Creatinine Ratio 22.4 H Glucose 145 H POC Glucose 164 H 147 H Estimat Average Glucose 120 Hemoglobin A1c 5.8 H Calcium 8.3 L 03/24/23 11:36 POC Glucose 117 H PG Care Time/CCT Total # of Minutes Spent Total Time Spent with Patient: Total time spent is greater than 50% in coordination of care (as documented) at patient's floor/unit and/or counseling patient: Coding Level of Care Code 44338 IN/OBS CONSULT LVL 3,45M Diagnoses Orthopnea R06.01 Status post reverse arthroplasty of right shoulder Z96.611 Atrial fibrillation I48.91 Prediabetes R73.03 Hematuria R31.9 GERD (gastroesophageal reflux disease) K21.9 BPH (benign prostatic hyperplasia) N40.0 Hyperlipidemia E78.5 Hypertension I10 Obstructive sleep apnea G47.33
--- NOTE | 2023-03-24 13:02 | Pharmacy Report ---
Glycemic Ortho Sign Off Note - Date of Service March 24, 2023 - Scope Glycemic Pharmacist consulted for glycemic control and to write orders per [facility] inpatient glycemic control protocol. - Objective Accuchecks BSG (last 24hrs):: 03/23/23 03/24/23 03/24/23 21:08 06:32 07:50 Glucose 145 H POC Glucose 164 H 147 H 03/24/23 11:36 Glucose POC Glucose 117 H HbA1c:: Hemoglobin A1c 5.8 % (4.5-5.6) H 03/24/23 06:32 - Assessment * Pt is maintained on oral antidiabeticagent[s]as anoutpatient with excellent control per recent A1c * Oral agents are not recommended for inpatient use d/t drug interactions, changing PO intake, and difficulty titrating for acute hyper/hypoglycemia. * Recommended regimen for inpatient use is SQ insulin * Low stress weight based insulin dosing appropriate since patient has minimal risk factors for insulin resistance (i.e. no steroids). * Appropriate to DC insulin and resume outpatient antidiabetic regimen at discharge * Goal is to maintain BSGs <200 mg/dl (ideally <150 mg/dl) to prevent post op complications - Plan For Inpatient Glycemic Control * Basal insulin * Not needed based on A1c, pre-op BSGs, and minimal risk factors for insulin resistance * Bolus insulin * Utilize low stress weight based NovoLog parameters per scale ACHS * Patient is refusing insulin altogether so will leave Novolog w/ correctional insulin only (no carb coverage ordered) * Pharmacy has entered glycemic orders and is signing off of the glycemic consult. We will no longer be making adjustments to inpatient regimen. Please feel free to re-consult if needed. Thank you.
--- NOTE | 2023-03-24 15:07 | Orthopedic Progress Note ---
Date of Service March 24, 2023 Assessment & Plan (1) Orthopnea: Plan: New onset - since post op patient briefly required 2 L of oxygen. He currently is stable and his vitals are good. He is sitting up comfortably and has no shortness of breath currently. His chest x-ray was reviewed by hospitalist and pulmonology that shows atelectasis and hemidiaphragm consistent with effects from right shoulder block. EKG normal. Was recommended that he continue with incentive spirometer. It was discussed with him that if he has any increase in shortness of breath including shortness of breath when he sitting up or at rest or any chest pain, dizziness he will need to return to the hospital. Will confirm with medicine that he is stable for discharge and no further workup is needed. Patient said that he discussed with the nurse that he was going to stop his Eliquis and take anti-inflammatories instead because he was told those are also blood thinners but help more with pain. I discussed with him that this is not a good idea as he was prescribed Eliquis and has been on Eliquis prior to his surgery due to his A-fib. He says that he does not have A-fib. I discussed with him that he should not stop his Eliquis unless directed by his physician who prescribed it. I discussed with him that he is at increased risk with blood clots due to his surgery and he needs to remain on his Eliquis. He can do oxycodone and Tylenol for pain. At the end of our discussion the patient expressed understanding and agreed that he would not stop his Eliquis. (2) Status post reverse arthroplasty of right shoulder: Plan: POD #1 s/p Reverse right TSA, doing as well as expected. Resume diet. No lifting more than coffee cup RUE. OOB to chair. Continue pain control. Ice to shoulder as needed for pain/swelling. Abduction sling, neck strap can be release while sleeping and sitting. DVT prophylaxis: TEDs 3 weeks, foot pumps while in hospital, Resume Eliquis - restarted this morning. PT/OT. Dressing changed to Silverlon dressing today. Plan on discharging to home he is orthopedically stable for discharge we will confirm that he is medically stable for discharge and feels comfortable going home. Findings discussed with Dr. Gutierrez Admission and Anticipated Discharge Date Admission Date: March 23, 2023 Subjective Patient was seen and examined chair side. He says that he is overall doing well. He has not tried laying down yet recently but he says he is having no shortness of breath at rest. He is not having any chest pain or any dizziness. He says that he was having some numbness and pain in his hand but he believes the thumb strap was cutting off his circulation so he took his thumb out and that is improving. He does not have much pain at all in the shoulder unless he moves a certain way. He is eager to get home. He says that his will be here around 4 and she is picking up his pain medications. He says that he was going to stop his Eliquis and take anti-inflammatories instead since that is a blood thinner and also controls his pain and he said he discussed this with the nurse who agreed with him. He has been using his incentive spirometer. Physical Exam Physical Exam: Brace is fitting appropriately. Please refer to previous note for further physical exam. Results & Data Vital Signs (Past 12 Hours) Vital Signs Temp Pulse Resp BP Pulse Ox O2 Del Method O2 Flow Rate 03/24/23 14:36 36.5 C 74 18 127/77 96 Room Air 03/24/23 09:48 36.4 C L 75 17 147/78 H 95 Room Air 03/24/23 08:09 76 17 155/78 H 95 Room Air 03/24/23 07:25 Room Air 03/24/23 07:20 36.6 C 81 16 157/81 H 96 Nasal Cannula 2 03/24/23 05:47 90 22 159/81 H 97 Nasal Cannula 2 03/24/23 03:02 37.1 C 89 18 180/83 H 96 Nasal Cannula 2.0
[2023-03-24] MEDS ORDERED: Nursing to Pharmacy Communication SCH (17:00)
[2023-03-24] MEDS ORDERED: LOSARTAN POTASSIUM 50 MG TAB PO SCH (21:00)
--- NOTE | 2023-03-25 07:39 | Electrocardiogram Report ---
Test Reason : Blood Pressure : / mmHG Vent. Rate : 077 BPM Atrial Rate : 077 BPM P-R Int : 196 ms QRS Dur : 092 ms QT Int : 384 ms P-R-T Axes : 036 011 -11 degrees QTc Int : 434 ms Normal sinus rhythm Normal ECG When compared with ECG of 14-JAN-2023 09:52, No significant change was found Confirmed by Cecilio Hidalgo ([id number]) on 03/25/2023 7:39:05 AM Referred By: Aaron Gutierrez Confirmed By:Cecilio Hidalgo
--- NOTE | 2023-03-29 09:21 | Discharge Summary ---
Date of Service March 29, 2023 Admission HPI Per Admitting Provider Patient is a 77-year-old male who has been dealing with right shoulder rotator cuff tear and osteoarthritis and failed conservative treatment. Risks and benefits of right total reverse arthroplasty of his right shoulder were discussed and he elected to proceed with surgical intervention. Admission Exam Per Admitting Provider Right shoulder: Patient's skin is intact. He has limited range of motion in all planes. Strength is also limited. He is neurovascularly intact. 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 Principal Diagnosis Status post total reverse arthroplasty right shoulder Discharge Exam General: Pt is sitting up in chair AA&O, in NAD, calm and cooperative during exam Upper Extremity: Dressing in tact and not saturated. Pt has full ROM of wrist and all 5 digits. Patient able to make a fist NVI with sensation to light touch distally and good distal pulses present. Upper extremity noted to have good color and temperature. Brace is fitting appropriately. Discharge Data Allergies Allergy/AdvReac Type Severity Reaction Status Date / Time metformin AdvReac Intermediate CAUSED IBS Verified 03/23/23 09:10 Consultations 03/18/23 11:07 Consult Hospitalist Routine 03/23/23 14:14 Consult Hospitalist Routine Procedures Performed Operation Date: 03/23/23 10:10 Actual Procedures p Right Reverse Total Shoulder Arthroplasty(Right) - Aaron Gutierrez MD Ordered Studies 03/23/23 05:00 US - OR guided needle placemen Routine Hospital Course (1) Orthopnea: New onset - since post op patient briefly required 2 L of oxygen. He currently is stable and his vitals are good. He is sitting up comfortably and has no shortness of breath currently. His chest x-ray was reviewed by hospitalist and pulmonology that shows atelectasis and hemidiaphragm consistent with effects from right shoulder block. EKG normal. Was recommended that he continue with incentive spirometer. It was discussed with him that if he has any increase in shortness of breath including shortness of breath when he sitting up or at rest or any chest pain, dizziness he will need to return to the hospital. Will c onfirm with medicine that he is stable for discharge and no further workup is needed. Patient said that he discussed with the nurse that he was going to stop his Eliquis and take anti-inflammatories instead because he was told those are also blood thinners but help more with pain. I discussed with him that this is not a good idea as he was prescribed Eliquis and has been on Eliquis prior to his surgery due to his A-fib. He says that he does not have A-fib. I discussed with him that he should not stop his Eliquis unless directed by his physician who prescribed it. I discussed with him that he is at increased risk with blood clots due to his surgery and he needs to remain on his Eliquis. He can do oxycodone and Tylenol for pain. At the end of our discussion the patient expressed understanding and agreed that he would not stop his Eliquis. (2) Status post reverse arthroplasty of right shoulder: POD #1 s/p Reverse right TSA, doing as well as expected. Resume diet. No lifting more than coffee cup RUE. OOB to chair. Continue pain control. Ice to shoulder as needed for pain/swelling. Abduction sling, neck strap can be release while sleeping and sitting. DVT prophylaxis: TEDs 3 weeks, foot pumps while in hospital, Resume Eliquis - restarted this morning. PT/OT. Dressing changed to Silverlon dressing today. Plan on discharging to home he is orthopedically and medically stable for discharge Findings discussed with Dr. Gutierrez Total Time Total Time Spent Total Time Spent (In Minutes): 45 minutes Discharge Plan Discharge Items Patient Disposition: Home - Self-Care Reason For Visit: RIGHT REVERSE TOTAL SHOULDER ARTHROPLASTY Discharge Diagnosis: Right shoulder arthritis; rotator cuff insufficiency Activity: As commented below Lifting: Wait until after follow-up appointment Bathing: Keep incision dry Bathing Comment: May shower tomorrow Sexual Activity: Wait until after follow-up appointment Exercise/Sports: Wait until after follow-up appointment Weightbearing Comment: no lifting greater than coffee cup Non-emergency contact: Surgeon Call non-emergency contact if: you have any medication questions, your pain is not controlled, your temperature is above 101.5 and your wound has increased drainage Follow-up/Referrals: Eileen Aden MD [Primary Care Provider] - Hallie Guerra PA-C [Physician Assistant Branch Operations Manager] - 04/05/23 1:00 pm Diet: Regular Addtl Attending Provider Instructions: POST OPERATIVE DISCHARGE INSTRUCTIONS Pain Control Please take the follow medications for pain control, as well as icing and elevating your operative extremity. Pain after surgery is to be expected. We may not be able to take away all of your pain, but the goal is to make your pain manageable - Extra strength Tylenol 1,000mg (2 tabs) every 8 hours - Oxycodone 5-10mg (1-2tabs) every 4-6 hours as needed DVT Prophylaxis With any surgery, you are at increased risk for blood clots. Please take the follow measures to prevent blood clots and read the warning signs to watch for. Please take the follow anticoagulant: Eliquis twice a day as previously done prior to surgery. Do not take NSAIDs (ibuprofen, aleve, motrin, advil, Celebrex ) while taking Eliquis due to bleeding risks. If you were given JOSEPHINE compression stockings, these are to be worn on both legs for 18-20 hours daily for 2 weeks, or for 3 weeks for any lower extremity surgery. Warning signs: Calf pain, lower extremity swelling, numbness/tingling, skin discoloration, increased pain, shortness of breath, chest pain. Please contact our office if you experience any of these symptoms or call 911 if you are having trouble breathing. Ice Ice your operative site at least 5 times a day for 15-30 minutes at a time, for the first three days, then as needed. This will help to reduce swelling and pain. Make sure you have a thin cloth between the ice or cooling unit and your skin to prevent zamora bite. This is especially important if you received a nerve block. Diet/Nausea/Vomiting Start by drinking clear liquids and eating crackers. If you can tolerate this, then you may resume your normal diet. If you feel nauseated or vomit, take Zofran/ondansetron (if prescribed). Please call our office if you have intractable nausea or vomiting, or, if after hours, you may go to the Emergency Room for help. Slings, Braces and Splints If you were placed in a sling, brace or splint, it must be worn at all times, including sleep. You may remove your sling or brace for physical therapy, home exercises, and showering. The length of time you will be in your splint/brace/sling and range of motion restrictions depends on what surgery you had; these details will be reviewed at your first post-operative appointment. Surgical Dressing Please leave on any dressing until you are seen by either PT or PA for your post-operative appointment, unless you are otherwise instructed. If there are any issues with your dressing please give our office a call. Weight bearing, Range of Motion, Activity You will be weight bearing as tolerated on your operative site. No lifting greater than a coffee cup with your operative arm. Physical therapy You will begin physical therapy 3-5 days after surgery. The duration of your physical therapy will depend on your surgery, and will be discussed at your post op appointment and with your physical therapist. Please also do any home exercises provided by your Physical Therapist. Wound care and showering We will inspect your wound at your first post-operative visit. It is normal to see some dried blood on the dressing. Do not remove your dressing, paper strips or sutures yourself unless otherwise instructed. Showering is allowed post op day 3. Do not scrub or remove any dressings, unless you are otherwise instructed. You may need a shower cover to avoid getting splint or surgical dressing wet. These can be purchased off of [employer]. The wound should not be submerged underwater (i.e. in a bathtub or pool) until 4 weeks after surgery. To promote wound healing, we recommend taking a multi-vitamin, or taking 500mg Vitamin C supplement twice a day for two weeks and 325mg Iron supplement twice a day for two weeks. This is especially important if you had a total joint replacement. Constipation Constipation is a common side effect of narcotic pain medication, dehydration after surgery and iron supplement (if you were instructed to begin that after surgery). We recommend purchasing an smai-gnr-dnuerpy laxative such as Milk of Magnesia, Colace, Dulcolax, Miralax or Senna from a local pharmacy, and taking it as instructed. Stay hydrated and you may increase your fiber in your diet as well. Call our clinic if any questions. Driving No driving until cleared by Dr. Gutierrez Return to Work Your return to work depends on what surgery was done and what type of work you do. Please bring any paperwork your employer needs completed to your first post-operative visit. Also, bring a description of your job duties, as this helps us to understand what risks you may face at work. Travel Avoid long distance travel (greater than 1 hour) in airplanes and cars for the first 6 weeks after surgery. Follow-up Please attend your post operative appointments as scheduled. At these appointments, we may do dressing change and remove any sutures/marjorie/Zip-line 10-14 days after your surgery. If you do not know your post operative appointment dates or times please call the office at [phone] When to call the office It is normal to have swelling and bruising in the limb that was operated on. This will improve with time. It is also normal to have fevers for the first 2 days after surgery. Reasons you should call your doctor include: Uncontrolled pain; Nausea, vomiting, or constipation that does not improve with medication; Fevers over 101.5, chills, sweats; Drainage or bleeding from the wound; Foul odor; Spreading areas of redness; calf pain or swelling, shortness of breath, chest pain; Any other concerns You may call the office at [phone]. If it is a medical emergency please call 911. Addtl Research Administrator Provider Instructions: Please use your incentive spirometer as instructed Report to ED as needed for shortness of breath Pending Studies at Discharge: No Stand-Alone Forms: [facility], Smoking Cessation Medications and DC Order Prescriptions: New ferrous gluconate 324 mg (38 mg iron) Tablet 324 mg PO BIDM 14 Days Qty: 28 0RF Rx Instructions: take with vitamin C; over the counter acetaminophen [Tylenol Extra Strength] 500 mg Tablet 1,000 mg PO Q8 Qty: 30 0RF oxycodone 5 mg Tablet 5 - 10 mg PO Q4H PRN (Reason: pain) Qty: 18 0RF Rx Instructions: 5mg for pain 1-5 10 mg for pain 6-10 docusate sodium 100 mg Capsule 100 mg PO BID 14 Days Qty: 28 0RF Rx Instructions: take while on pain medication; over the counter ascorbic acid (vitamin C) [Vitamin C] 500 mg Tablet 500 mg PO BIDM 14 Days Qty: 28 0RF Rx Instructions: take with iron; over the counter Continued psyllium husk 0.4 gram capsule 0.4 g PO DAILY PRN (Reason: Constipation) dicyclomine 20 mg tablet 20 mg PO BID PRN (Reason: ibs) carvedilol 25 mg tablet 25 mg PO BID simvastatin 10 mg tablet 10 mg PO HS terazosin 1 mg capsule 1 mg PO HS cyclobenzaprine 10 mg tablet 10 mg PO TID PRN (Reason: muscle spasm) Qty: 10 0RF losartan 100 mg tablet 100 mg PO HS Eliquis 5 mg tablet 5 mg PO BID Jardiance 10 mg tablet 10 mg PO QAM famotidine [Pepcid] 40 mg tablet 40 mg PO HS Discharge Orders: Discharge Order (Routine); Ordered 03/24/23 Ordered By: Aaron Blunt/Other Patient Handouts: Shoulder Replace Home Recovery Admission Data Admit Date/Time: 03/23/23 14:14 Attending Provider: Aaron Gutierrez Admit Provider: Aaron Gutierrez Primary Care Provider: Eileen Aden Other Providers: Shine Leal; [facility],Elias Borges Urzeda; [place]; Stephie Soto; Mathew Christensen; Martin Leblanc; Brendon Kurtz; Kelsea Vann; Silke Ashford; Braden Block; Cecille Jade; Giles Beverly; Julieth Bañuelos; Bill Olivia; Yair Galeano; Stephie Rea; Karey Day; Jono Ya; Shine Edouard; Abner Temple; Lamar Zurita; Joanie Cruz; Sanchez Smith; Nathalia Hennessy; Vic Huertas; Lakhwinder Vuong; Viktor Smith; Hilario Wolf; Cherelle Reyna; Stacy Musa; Alan Esteves; Mathew Henderson; Martin Gonzalez Other Interventions: Discharge Summary Assessment (RN) Last Done: 03/24/23 17:52
== END 2023-03-24 18:37 | disposition home health service (06) ==
LOC: ASU 08:25 → PACUINP 08:25 → 3W 16:41